=== PATIENT | female | born 1960 | race Caucasian/White ===

== ENCOUNTER → 2018-02-27 12:16 | Outpatient (CLI) | payer OTHER, SELFPAY ==
--- NOTE | 2018-02-27 | DI.US.S_ITS ---
PROCEDURE: US EXTREMITY NONVASC LOWER LT INDICATIONS: Left calf superficial mass, slowly enlarging over 2 years. TECHNIQUE: Real-time scanning was performed of the left calf in area of clinical concern, with image documentation. COMPARISON: None. FINDINGS: A focal ovoid hypoechoic mass is present exactly correlated with the area of current left calf lump, measuring up to 1.9 x 0.8 x 1.9 cm. This demonstrates internal vascularity. IMPRESSION: Recommend surgical consultation for presumed malignancy versus chronic low grade infection as cause of the vascular mass noted within the soft tissues of the left calf. Contrast enhanced MR scanning likely is warranted for more accurate assessment. Dictated by: Robbi Aviles M.D. on 02/27/2018 at 13:35 Approved by: Robbi Aviles M.D. on 02/27/2018 at 13:37
== END ==
PROVIDERS: Family Provider Physician Assistant; PCP Physician Assistant; Visit Provider Physician Assistant
DX: M79.89 Other specified soft tissue disorders (principal)
CPT/HCPCS: 76882

== ENCOUNTER 2018-05-01 09:58 | Day surgery (SDC) | payer OTHER, SELFPAY ==
[2018-04-26 11:48] VITALS: BMI 38.6
[2018-05-01] VITALS (7 sets, daily range): BP systolic 95–154; BP diastolic 54–84; PULSE 67–85; RESP 10–20; TEMP 37.1–38.2; O2SAT 94–100; BMI 38.2
--- NOTE | 2018-05-01 | PATH_ITS ---
[facility] Accession Number: [id number] . 01 Material submitted: . LEFT LEG . 01 Clinical history: . SUBCUTANEOUS MASS . 02 Diagnosis: Left Leg, Subcutaneous Mass, Excision: Mature adipose tissue, consistent with lipoma. Negative for atypia or malignancy. MRV/05/09/2018 . 02 Comment: As part of routine quality control supervisor, Dr. Brewer also reviewed this case and agrees with the diagnosis. . 02 Electronically signed: . Azucena Meek MD, Pathologist NPI- [id number] . 01 Gross description: . Received in formalin, labeled left leg subcutaneous mass; short stitch superior, long stitch posterior, ink margin is true anterior margin, is a piece of adipose tissue (2.2 cm AP, 7.5 cm SI, 5.1 cm ML) partially covered by skin on the posterior lateral aspect (7.2 cm SI, 2.3 cm ML). The specimen is oriented with two black sutures (short-superior, long-posterior) and the inked margin is designated as the true anterior margin. The skin is mahan, smooth, shiny and unremarkable. The specimen is serially sectioned SI into 19 slices with the superior and inferior resection margins as slices #1 and #19, respectively. An irregular mahan-yellow semitranslucent semi-gelatinous mass (2.8 x 2.5 x 1.8 cm) is identified within slices #9-#15. The mass is 0.7 cm from the anterior, less than 0.1 cm from the posterior, 3.2 cm from the superior, 1.2 cm from the inferior, 2.5 cm from the medial, and less than 0.1 cm from the lateral resection margins. The remaining cut surface is homogeneous and unremarkable, including no hemorrhagic areas or necrosis. Ink code: purple-anterior; yellow-posterior; black-superior; orange-inferior; green-medial; blue-lateral. Section code: (A1) superior resection margin, perpendicularly sectioned, entirely submitted; (A2-A3) slice #8, tissue adjacent to mass, bisected and entirely submitted ML; (A4) slice #9, bisected ML, lateral half submitted; (A5-A7) slice #13, trisected and entirely submitted ML; (A8) slice #15, bisected ML, lateral half submitted; (A9) slice #16, tissue adjacent to mass, bisected ML, lateral half submitted; (A10) inferior resection margin, perpendicularly sectioned, entirely submitted. ([id number]) /MRV . 02 Pathologist provided ICD-10: D17.9 . 02 CPT . 513596 Performed at: 01 [facility] [address] [place] [address], [place], [place] [id number] MD Miguel Burns MD Phone: [phone] Performed at: 02 [facility] [address] [place], [place] [id number] MD Azucena Meek MD Phone: [phone]
[2018-05-01] MEDS: LACTATED RINGERS 1,000 ML 42 ML IV (10:21)
--- NOTE | 2018-05-01 10:41 | PM.PREOP ---
Pre-operative Note Interval Note Pre-op Check: Yes History & Physical Reviewed by Physician and Yes Exam Performed Changes: No H&P completed within 30 days and has changed as indicated here:: Patient seen and examined in preoperative area. Patient marked for surgery. History physical examination has not changed. Documents placed on the chart within the last 30 days as previously dictated. Proceed with excision of leg mass today as planned.
[2018-05-01] MEDS: CEFAZOLIN 2 GM/100 ML FROZ.PIGGY IV (10:45)
--- NOTE | 2018-05-01 11:08 | SUR.OPER ---
Supine on padded OR bed, head on pillow, arms secured on padded arm boards at <90 degrees abduction, legs uncrossed, safety belt at abdomen, gel bump under left hip, left ankle placed on picket fence with gel pad under to protect, tape over blanket over right lower leg.
[2018-05-01] MEDS: BUPIVACAINE 0.5% (PF) VIAL 30 ML INJ (11:21)
[2018-05-01] MEDS: LIDOCAINE 1% W/EPI INJ 20 ML INJ (11:22)
--- NOTE | 2018-05-01 11:55 | PM.OP.1 ---
Operative Date/Time/Diagnoses Date of procedure: 05/01/18 Time of procedure: 11:55 Pre-op diagnosis: Left lower leg subcutaneous mass of unknown malignant potential Post-op diagnosis: same Procedure & Clinicians Procedure: 1. Excision of left lower leg subcutaneous mass with total defect measuring 9 x 3 cm 2. Excision included skin and subcutaneous tissue down to the level of fascia but fascia was left intact Same procedure as scheduled: Yes Indications: 57-year-old female with enlarging left lower leg mass that was becoming mildly painful and tender. Ultrasound showed abnormal vascularity and features of a solid mass that was not well characterized. Lesion did not appear to be consistent with classic lipoma by ultrasound or examination. Therefore excision of the mass with surrounding tissue and adequate margins was recommended. Surgeon: Serge Blankenship Click Yes if Unassisted: Yes Anesthesia Type: General Operative Notes Findings: 1. Subcutaneous mass in left lateral distal calf measuring approximately 2 x 2 cm without obvious skin involvement 2. No satellite lesions 3. No evidence of invasion of underlying muscle compartment Closure Type: primary Specimen(s): other (Left lower leg subcutaneous mass) Implants & Drains: None Estimated Blood Loss (mL): 10 Blood products transfused: none Procedure in detail: After obtaining informed consent the patient was brought to the operating room and placed supine on the table. After satisfactory induction of anesthesia the leg was elevated on a padded bolster and prepped and draped in usual sterile fashion. SCOAP time out was performed per standard protocol. Elliptical incision was then designed with the above dimensions surrounding the subcutaneous mass with grossly negative margins. Bovie was used to achieve hemostasis after the skin was incised with 10 scalpel blade. Dissection was carried down through the subcutaneous tissue to the fascia and then the entire lesion was removed. Specimen was oriented and sent for permanent section. Wound was irrigated and noted to be hemostatic. Local anesthesia consisting of 1-1 mixture 1% lidocaine with 100,000 epinephrine 0.5% plain Marcaine was injected in the skin and subcutaneous tissue for postoperative analgesia. Subcutaneous tissue was then partially reapproximated distally and proximally with interrupted 3 0 Vicryl suture. Skin was then closed with interrupted 3 0 nylon sutures placed in a vertical mattress fashion. Hemostasis was again verified and sterile dressing was applied. Anesthesia was reversed and patient extubated in operating room. She was taken recovery in stable condition. Complications: none Condition: stable Disposition: PACU Plan for aftercare: 1. Discharge home 2. Follow up in surgery Clinic in 2 weeks
== END 2018-05-01 12:35 | disposition home or self-care (01) ==
PROVIDERS: PCP Physician Assistant; Visit Provider Surgery
PROC: (CPT 27632; principal; 2018-05-01 11:15)
DX: D17.24 Benign lipomatous neoplasm of skin and subcutaneous tissue of left leg (principal); I10 Essential (primary) hypertension; E78.5 Hyperlipidemia, unspecified; G47.33 Obstructive sleep apnea (adult) (pediatric); K21.9 Gastro-esophageal reflux disease without esophagitis
CPT/HCPCS: 27632; J0690; J1100; J2250; J2405; J2704; J3010

== ENCOUNTER → 2020-02-26 11:01 | Outpatient (CLI) | payer OTHER, SELFPAY ==
[2020-02-27 08:47] LABS: COVID19 Sendout Not Detected (Not Detect)
== END ==
PROVIDERS: PCP Physician Assistant; Visit Provider Physician Assistant
DX: Z11.59 Encounter for screening for other viral diseases (principal)
CPT/HCPCS: 87635

== ENCOUNTER → 2020-08-20 13:20 | Outpatient (CLI) | payer OTHER, SELFPAY ==
[2020-08-20] MEDS: COVID-19 VACC, Ad26(JANSSEN)/PF 0.5 ML IM (13:42)
== END ==
PROVIDERS: PCP Physician Assistant; Visit Provider Internal Medicine
DX: Z23 Encounter for immunization (principal)
CPT/HCPCS: 0031A; 91303

== ENCOUNTER 2020-11-09 10:34 | Emergency (ER) | payer OTHER, SELFPAY ==
[2020-11-09 10:47] VITALS: BP 189/87; PULSE 76; RESP 20; TEMP 36.9; O2SAT 100; BMI 38.6
--- NOTE | 2020-11-09 10:52 | PC.NURSE ---
pt has been out of venlafaxine 150mg for 4-5 days, pt is now having withdrawal symptoms.
[2020-11-09 11:00] VITALS: BP 172/77; PULSE 71; RESP 17; O2SAT 96
[2020-11-09] MEDS: VENLAFAXINE ER 75 MG CAP 150 MG PO (11:05)
--- NOTE | 2020-11-09 11:17 | PC.NURSE ---
order for venlafaxine is a one time order.
[2020-11-09 11:31] VITALS: BP 174/77; PULSE 71; O2SAT 95
--- NOTE | 2020-11-09 11:58 | ED_ITS ---
HPI - Recheck/Abnormal Lab/Rx General Chief Complaint: Recheck/Abnormal Lab/Rx Stated Complaint: OUT OF MEDS- NAUSEA, DIZZY, CONFUSION Time Seen by Provider: 11/09/20 11:58 Source: patient Mode of arrival: Ambulatory Limitations: no limitations Related Data Home Medications Medication Instructions Recorded Confirmed ranitidine HCl 300 mg PO DAILY #0 08/20/10 11/01/18 venlafaxine 150 mg PO DAILY #0 08/20/10 11/01/18 gabapentin [Gralise] 300 mg PO BID #0 10/07/11 11/01/18 omeprazole 40 mg PO BID #0 10/07/11 11/01/18 atorvastatin 10 mg PO DAILY 04/26/18 11/01/18 losartan 50 mg PO BID 04/26/18 11/01/18 Respironics Dreamstation CPAP #1 ea 11/01/18 11/01/18 Allergies Allergy/AdvReac Type Severity Reaction Status Date / Time Latex, Natural Rubber Allergy Mild Rash Verified 02/26/20 12:41 aspirin AdvReac Mild SICK TO Verified 02/26/20 12:41 STOMACH hydrocodone AdvReac Mild Nausea Verified 02/26/20 12:41 oxycodone AdvReac Unknown Nausea Verified 02/26/20 12:41 latex AdvReac Skin Burn Verified 02/26/20 12:41 meperidine [From Demerol] AdvReac Vomiting Verified 02/26/20 12:41 Patient History Medical History (Updated 11/09/20 @ 13:10 by BRISEIDA Good) Anxiety Arthritis Chest pain Constipation Diverticulosis GERD (gastroesophageal reflux disease) HTN (hypertension) Hyperlipidemia Hypoglycemia Mass (~04/2018) Migraines Sleep apnea Surgical History H/O: hysterectomy History of carpal tunnel repair History of colonoscopy History of hemorrhoidectomy Hx of shoulder surgery S/P carpal tunnel release Family History Mother Diabetes mellitus Gallstones Hypertension Father Heart disease Social History marital status: household members: spouse occupational status: previously employed Smoking Status: Former smoker alcohol intake: current substance use type: does not use Smoking Status: Former smoker Substance Use Type: does not use Exam Initial Vital Signs Initial Vital Signs: Vital Signs Temperature 98.4 F 11/09/20 10:47 Pulse Rate 76 11/09/20 10:47 Respiratory Rate 20 11/09/20 10:47 Blood Pressure 189/87 H 11/09/20 10:47 Pulse Oximetry 100 11/09/20 10:47 Course Orders Ordered: ED Orders 11/09/20 12:17 EKG-12 Lead Stat Discontinued Medications Ondansetron HCl (Ondansetron 4 Mg Odt) 4 mg SL NOW ONE Stop: 11/09/20 12:01 Last Admin: 11/09/20 12:04 Dose: 4 mg Documented by: SHERRY Ondansetron HCl (Ondansetron 4 Mg Odt Prepack) 1 bottle MISC SEEINSTR ONE Stop: 11/09/20 13:03 Last Admin: 11/09/20 13:19 Dose: 1 bottle Documented by: SHERRY Venlafaxine HCl (Venlafaxine Er 75 Mg Cap) 150 mg PO DAILY [facility] Last Admin: 11/09/20 11:05 Dose: 150 mg Documented by: BTONEJason Vital Signs Vital signs: Vital Signs - 8 hr 11/09/20 13:20 Pulse Rate 68 Respiratory Rate 12 Blood Pressure 158/76 H Pulse Oximetry 99 Discharge Plan Departure Patient Disposition: Home Clinical Impression: Drug withdrawal syndrome Qualifiers: Substance type: other psychoactive substance Qualified Code(s): F19.939 - Other psychoactive substance use, unspecified with withdrawal, unspecified Instructions: DI for Drug or Alcohol Withdrawal Activity Restrictions/Additional Instructions: You have been diagnosed with [medication withdrawal from Venlafaxine. Please continue with your medication as planned. You can take Zofran/ondansetron as needed for nausea.]. What to do: *Take your medications as directed. *Follow up with your primary care provider in 2-3 days, call for an appointment. Let them know you were seen in the ED and that we asked you to be seen in follow up. *Return to ED if you have any new, worsening, or concerning symptoms, such as [chest pain, breathing difficulty, unable to tolerate fluids, near syncope or any acute concerns]. Prescriptions: No Action ranitidine HCl 300 mg Tablet 300 mg PO DAILY Qty: 0 RF: 0 venlafaxine 50 mg Tablet 150 mg PO DAILY Qty: 0 RF: 0 omeprazole 40 mg Capsule,Delayed Release(Dr/Ec) 40 mg PO BID Qty: 0 RF: 0 gabapentin [Gralise] 300 MG tablet extended release 24 hr 300 mg PO BID Qty: 0 RF: 0 losartan 50 mg Tablet 50 mg PO BID RF: 0 atorvastatin 10 mg Tablet 10 mg PO DAILY RF: 0 (DME) Respironics Dreamstation CPAP Qty: 1 RF: 0 Referrals: Nikole Santana PA-C [Primary Care Provider] -
[2020-11-09] MEDS: ONDANSETRON 4 MG ODT SL (12:04)
--- NOTE | 2020-11-09 12:18 | ED.RECABL ---
HPI - Recheck/Abnormal Lab/Rx <BRISEIDA Good - Last Filed: 11/09/20 13:51> General Chief Complaint: Recheck/Abnormal Lab/Rx Stated Complaint: OUT OF MEDS- NAUSEA, DIZZY, CONFUSION Time Seen by Provider: 11/09/20 11:58 Source: patient Mode of arrival: Ambulatory Limitations: no limitations History of Present Illness HPI narrative: This is a 60 year female, former smoker, has medical history significant for anxiety, neuropathy, hyperlipidemia, hypertension, GERD presents to ED with chief complain of possible venlafaxine withdrawal she routinely takes last 5-10 years for anxiety and possible neuropathy and her mood has been stable. Patient reports she had venlafaxine refilled was forgot to pick this of not taken for 5 days. Yesterday she felt nausea, feeling edge, crying, vomiting, and could not think straight. Then she remember was off for the venlafaxine for 5 days. She went in to walk-in clinic today and was referred to ED since the medication could not be filled by walk-in clinic. Patient reports bilateral below diaphragm discomfort resolved now and contributes to vomiting. Patient denies dyspnea. Patient is planning to flower picker the medications tomorrow. PCP Carole Santana. Related Data Home Medications Medication Instructions Recorded Confirmed ranitidine HCl 300 mg PO DAILY #0 08/20/10 11/01/18 venlafaxine 150 mg PO DAILY #0 08/20/10 11/01/18 gabapentin [Gralise] 300 mg PO BID #0 10/07/11 11/01/18 omeprazole 40 mg PO BID #0 10/07/11 11/01/18 atorvastatin 10 mg PO DAILY 04/26/18 11/01/18 losartan 50 mg PO BID 04/26/18 11/01/18 Respironics Dreamstation CPAP #1 ea 11/01/18 11/01/18 Allergies Allergy/AdvReac Type Severity Reaction Status Date / Time Latex, Natural Rubber Allergy Mild Rash Verified 02/26/20 12:41 aspirin AdvReac Mild SICK TO Verified 02/26/20 12:41 STOMACH hydrocodone AdvReac Mild Nausea Verified 02/26/20 12:41 oxycodone AdvReac Unknown Nausea Verified 02/26/20 12:41 latex AdvReac Skin Burn Verified 09/16/20 12:41 meperidine [From Demerol] AdvReac Vomiting Verified 02/26/20 12:41 Review of Systems <BRISEIDA Good - Last Filed: 11/09/20 13:51> Review of Systems Narrative: General: Denies fever, chills, fatigue, malaise, sweats. HEENT: Denies sinus pain, ear pain, sore throat, difficulty swallowing, dizziness. Respiratory: Denies dyspnea, cough, wheezing, hemoptysis, sputum. Cardiovascular: See HPI Gastrointestinal: See HPI : Denies dysuria, frequency, incontinence, hematuria, urinary retention. Musculoskeletal: Denies weakness, joint pain or bony pain. Skin: Denies rash, skin lesions, or other. Neurologic: See HPI Psychiatric: See HPI 12-point review of systems is negative except for those stated above. Patient History <BRISEIDA Good - Last Filed: 11/09/20 13:51> Medical History (Updated 11/09/20 @ 13:10 by BRISEIDA Good) Anxiety Arthritis Chest pain Constipation Diverticulosis GERD (gastroesophageal reflux disease) HTN (hypertension) Hyperlipidemia Hypoglycemia Mass (~04/2018) Migraines Sleep apnea Surgical History H/O: hysterectomy History of carpal tunnel repair History of colonoscopy History of hemorrhoidectomy Hx of shoulder surgery S/P carpal tunnel release Family History Mother Diabetes mellitus Gallstones Hypertension Father Heart disease Social History marital status: household members: spouse occupational status: previously employed Smoking Status: Former smoker alcohol intake: current substance use type: does not use Smoking Status: Former smoker Substance Use Type: does not use Exam <BRISEIDA Good - Last Filed: 11/09/20 13:51> Narrative Exam Narrative: General appearance: well developed, well nourished, in no acute distress. Head: normocephalic, atraumatic, no scalp lesions, non-tender. ENT: Hearing grossly intact. Airway patent. Neck/Thyroid: neck supple, full range of motion, no visible masses or meningeal signs. No JVD, non-tender without lymphadenopathy. Skin: no suspicious rashes, lesions over visible areas. Warm and dry and appropriate color for ethnicity. Heart: no clubbing, no cyanosis, no edema. S1 and S2 normal. RRR w/o murmurs, clicks, or bruits. Lungs: Breathing even and unlabored. No stridor. No accessory muscles used. Able to speak in full sentences. Chest: normal shape and expansion. Abdomen: non-obese, non-distended. Neurologic: alert and oriented. Cognitive exam, [employer] and PNS grossly intact on informal exam. Psych: good eye contact, normal affect. Initial Vital Signs Initial Vital Signs: Vital Signs Temperature 98.4 F 11/09/20 10:47 Pulse Rate 76 11/09/20 10:47 Respiratory Rate 20 11/09/20 10:47 Blood Pressure 189/87 H 11/09/20 10:47 Pulse Oximetry 100 11/09/20 10:47 <Sabi Allison DO - Last Filed: 11/09/20 19:34> Initial Vital Signs Initial Vital Signs: Vital Signs Temperature 98.4 F 11/09/20 10:47 Pulse Rate 76 11/09/20 10:47 Respiratory Rate 20 11/09/20 10:47 Blood Pressure 189/87 H 11/09/20 10:47 Pulse Oximetry 100 11/09/20 10:47 Scores <BRISEIDA Good - Last Filed: 11/09/20 13:51> GCS [place] coma scale eye opening: Spontaneous [place] coma scale verbal response: Orientated [place] coma scale motor response: Obey commands [place] coma scale total score: 15 Course <BRISEIDA Good - Last Filed: 11/09/20 13:51> Orders Ordered: ED Orders 11/09/20 12:17 EKG-12 Lead Stat Discontinued Medications Ondansetron HCl (Ondansetron 4 Mg Odt) 4 mg SL NOW ONE Stop: 11/09/20 12:01 Last Admin: 11/09/20 12:04 Dose: 4 mg Documented by: SHERRY Ondansetron HCl (Ondansetron 4 Mg Odt Prepack) 1 bottle MISC SEEINSTR ONE Stop: 11/09/20 13:03 Last Admin: 11/09/20 13:19 Dose: 1 bottle Documented by: SHERRY Venlafaxine HCl (Venlafaxine Er 75 Mg Cap) 150 mg PO DAILY [facility] Last Admin: 11/09/20 11:05 Dose: 150 mg Documented by: BTONER Vital Signs Vital signs: Vital Signs - 8 hr 11/09/20 13:20 Pulse Rate 68 Respiratory Rate 12 Blood Pressure 158/76 H Pulse Oximetry 99 <Sabi Allison DO - Last Filed: 11/09/20 19:34> Orders Ordered: ED Orders 11/09/20 12:17 EKG-12 Lead Stat Discontinued Medications Ondansetron HCl (Ondansetron 4 Mg Odt) 4 mg SL NOW ONE Stop: 11/09/20 12:01 Last Admin: 11/09/20 12:04 Dose: 4 mg Documented by: SHERRY Ondansetron HCl (Ondansetron 4 Mg Odt Prepack) 1 bottle MISC SEEINSTR ONE Stop: 11/09/20 13:03 Last Admin: 11/09/20 13:19 Dose: 1 bottle Documented by: SHERRY Venlafaxine HCl (Venlafaxine Er 75 Mg Cap) 150 mg PO DAILY [facility] Last Admin: 11/09/20 11:05 Dose: 150 mg Documented by: BTONER Vital Signs Vital signs: Vital Signs - 8 hr 11/09/20 13:20 Pulse Rate 68 Respiratory Rate 12 Blood Pressure 158/76 H Pulse Oximetry 99 MDM - Recheck/Abnormal Lab/Rx <BRISEIDA Good - Last Filed: 11/09/20 13:51> Differential Diagnosis Differential diagnosis: Likely other (ACS, medication withdrawal syndrome, anxiety) Medical Records Attestation: I reviewed the patient's medical records. ECG Data Attestation: I personally reviewed and interpreted this ECG as follows: Prior ECG tracings: available for review Interpretation: Normal sinus rhythm rate at 68. Normal [place]. P are interval 140, QRS duration 86, QT/QTC 414/440. Nonspecific T-wave abnormal T. Previous EKG normal sinus rhythm MDM Narrative Medical decision making narrative: This is a 60 year female who stopped her routine medication venlafaxine inadvertently 5 days ago and presents to ED with feeling edgy, nausea, vomiting, and crying since last night. Patient was medicated with Zofran and her routine medication post in ED. she is planning to flower picker her medication tomorrow and pharmacy is open. Patient reports feeling improved with her symptoms while she was monitored in ED. patient denies suicidal or homicidal thoughts. EKG is sinus rhythm with nonspecific T-wave abnormal T and she contributed her bilateral below diaphragm discomfort from excessive vomiting. Patient advised to follow-up with her primary care physician and we discussed return precautions which she verbalized understanding in agreement with plan of care. Patient discharged to home with Karmenkristel prepack. Discharge Plan Departure Patient Disposition: Home Clinical Impression: Drug withdrawal syndrome Qualifiers: Substance type: other psychoactive substance Qualified Code(s): F19.939 - Other psychoactive substance use, unspecified with withdrawal, unspecified Instructions: DI for Drug or Alcohol Withdrawal Activity Restrictions/Additional Instructions: You have been diagnosed with [medication withdrawal from Venlafaxine. Please continue with your medication as planned. You can take Zofran/ondansetron as needed for nausea.]. What to do: *Take your medications as directed. *Follow up with your primary care provider in 2-3 days, call for an appointment. Let them know you were seen in the ED and that we asked you to be seen in follow up. *Return to ED if you have any new, worsening, or concerning symptoms, such as [chest pain, breathing difficulty, unable to tolerate fluids, near syncope or any acute concerns]. Prescriptions: No Action ranitidine HCl 300 mg Tablet 300 mg PO DAILY Qty: 0 RF: 0 venlafaxine 50 mg Tablet 150 mg PO DAILY Qty: 0 RF: 0 omeprazole 40 mg Capsule,Delayed Release(Dr/Ec) 40 mg PO BID Qty: 0 RF: 0 gabapentin [Gralise] 300 MG tablet extended release 24 hr 300 mg PO BID Qty: 0 RF: 0 losartan 50 mg Tablet 50 mg PO BID RF: 0 atorvastatin 10 mg Tablet 10 mg PO DAILY RF: 0 (DME) Respironics Dreamstation CPAP Qty: 1 RF: 0 Referrals: Nikole Santana PA-C [Primary Care Provider] -
[2020-11-09] MEDS: ONDANSETRON 4 MG ODT PREPACK 1 BOTTLE MISC (13:19)
[2020-11-09 13:20] VITALS: BP 158/76; PULSE 68; RESP 12; O2SAT 99
== END 2020-11-09 13:21 | disposition home or self-care (01) ==
PROVIDERS: Emergency Provider Nurse Practitioner Family; PCP Physician Assistant
DX: F19.939 Other psychoactive substance use, unspecified with withdrawal, unspecified (principal); R11.2 Nausea with vomiting, unspecified; R07.9 Chest pain, unspecified
CPT/HCPCS: 93005; 99283